=== PATIENT | female | born 1990 | race Caucasian/White ===

== ENCOUNTER 2017-05-29 03:43 | Emergency (ER) | payer BC ==
[~2017-05-29] VITALS: Ht 154.9 cm; Wt 71.4 kg
[~2017-05-29 03:43] MED LIST: FERROUS SU325 MG/TAB PO; IBU600 MG PO; MOTRIN 600600 MG/TAB PO; MOTRIN 800800 MG/TAB PO; NO HOME MEDICATIONS; PERCOCET 325 MG1 TA2 PO; PHENERGAN W/CO120 M1 PO; PRENATAL1 TA1 PO; ZANTAC 150MG T150 MG PO; ZITHROMAX 250M250 MG PO
[2017-05-29 03:45] VITALS: BP 105/67; PULSE 99; TEMP 97.9
== END 2017-05-29 05:00 | disposition home or self-care (01) ==
LOC: COL.ER 03:43
DX: H57.12 Ocular pain, left eye (principal); W54.8XXA Other contact with dog, initial encounter

== ENCOUNTER → 2018-08-04 | Outpatient (CLI) | payer BC | LOC: MC.RAD 08:09 | DX: N63.21 Unspecified lump in the left breast, upper outer quadrant (principal) ==

== ENCOUNTER → 2020-02-21 | Outpatient (CLI) | payer BC | LOC: ZCOL.LAB 16:27 | DX: Z20.828 Contact with and (suspected) exposure to other viral communicable diseases (principal); R05 Cough; R50.9 Fever, unspecified ==